=== PATIENT | male | born 1955 | race Two or more races ===

== ENCOUNTER → 2024-08-22 | Day surgery (SDC) | payer OTHER, MEDICAID ==
[~2024-08-22] VITALS: Ht 172.7 cm; Wt 92.1 kg
[~2024-08-22] MED LIST: AML5T PO; ATOR10TA52 PO; CHOL20007 OR; FINA5TAB4 PO; HYDR-4072 PO; HYDROmorphone HCL 2 MG/ML VL/or syr IV PRN; HYDROmorphone HCL 2 MG/ML VL/or syr ONE; KETOROLAC TROMETH 30 MG/ML 1ML VIAL IV ONE; METF-490 PO; MIDAZOLAM HCL 2MG/2ML 2ml VIAL (1mg/ml) IV PRN; MIDAZOLAM HCL 2MG/2ML 2ml VIAL (1mg/ml) ONE; MORPHINE SULFATE 4 MG/ML SYR/VIAL IV PRN; ONDANSETRON HCL 4 MG/2 ML VIAL IV ONE; PROPOFOL 10 MG/ML 20 ML IV ONE; TAMS0.4C39 PO; ceFAZolin 2 GM/D5W50ml 50 ML IV ONE; ePHEDrine SULFATE 50 MG/ML AMP IV PRN; ePHEDrine SULFATE 50 MG/ML AMP ONE; fentaNYL CITRATE 100 MCG/2 ML VL ONE; hydrALAZINE HCL 20 MG/ML VL IV PRN
[2024-08-22 08:15] VITALS: PULSE 82; RESP 18; O2SAT 96
[2024-08-22 09:15] VITALS: BP 142/78; PULSE 73; RESP 14; O2SAT 98
--- NOTE | 2024-08-22 11:12 | DVHOP2 ---
Discharge Orders Discharge Orders DISCHARGE WHEN CRITERIA MET DISCHARGE WHEN CRITERIA MET. Operative Rep- Outpatient Operative Report PRE-OP DIAGNOSIS: Left knee medial and lateral meniscus tear PRE-OP PAIN LEVEL (0-10): 7 POST-OP DIAGNOSIS: Same [facility] protocol followed: Yes ESTIMATED BLOOD LOSS: Minimal PROCEDURE: Left knee arthroscopy with a partial medial and lateral meniscectomy Left knee microfracture lateral femoral condyle Left knee aggressive synovectomy with excision of the medial plica an anterior fat pad SURGEON/INTRAMURAL DIRECTOR: Toribio EM ANESTHESIA: General ANESTHESIOLOGIST: INFORMED CONSENT: Informed Consent: Discussed all inherent risks, complications, and alternatives treatments with the patient. Patient has agreed to proceed with the procedure. I have reviewed all pre-operative assessments including Labs, EKGs, and radiographic images that has been performed. Patient is an appropriate candidate for the outpatient surgical center procedure. The patient was educated on the risks and benefits of surgical and nonsurgical treatment of the left lower extremity the patient understood the risks and benefits of surgical and nonsurgical treatment of left knee the patient had a medial meniscus tear and lateral meniscus tear of the patient understood the risks associated with the having arthroscopy of the left knee the patient understood the risks of having cartilage procedure was based on these parameters the patient was educated in the preoperative diagnosis. The patient was seen in the preoperative holding of the left lower extremity was marked the patient was brought to the operative suite general anesthesia was then induced and also to hospital protocol the left lower extremity was prepped and draped in the standard fashion Ancef was given for infection prophylaxis TXA was given for bleeding prophylaxis of the left lower extremity was then prepped and draped in the standard fashion once it was then done on the anteromedial anterolateral portal were then made to put the arm with the patellofemoral joint was then noted the patient has significant osteophyte noted on the inferior pole of the patella the patient had grade 1 grade 2 changes on the inferior lateral facet of the patella the medial and lateral facet the patient had grade 1 changes on the trochlea the medial femoral condyle and grade 3 changes on the medial femoral condyle with the patient had grade 3 changes of the medial tip plateau of the best complex tear of the posterior horn of the medial meniscus with partial medial meniscectomy was then completed with a shaver and biter once it was then completed the ACL PCL grossly was intact radiographs of synovitis into a excision of the medial plaquing anterior fat pad once I was then completed the lateral meniscus that a radial body tear of the involving 20% of the meniscus with partial lateral meniscectomy was then completed the lateral femoral condyle and lateral tibial plateau cartilage was grossly intact with a 0.25 of ropivacaine local was injected into the portal sites closed with 2-0 nylon. The patient will be weight-bearing as tolerated in the left lower extremity PT OT out of bed daily the microfracture and recall the nodule had femoral condyle was then completed on for vessel, bleeding the patient will be weight-bearing as tolerated the patient will be educated on the articular cartilage changes and the ongoing pain in the knee based on the articular cartilage changes. TORIBIO SIDDIQUI MD Aug 22, 2024 11:12
== END | disposition home or self-care (01) ==
LOC: SUR 06:14
PROVIDERS: ATTEND Orthopaedic Surgery
DX: S83.242A Other tear of medial meniscus, current injury, left knee, initial encounter (principal); S83.282A Other tear of lateral meniscus, current injury, left knee, initial encounter; M17.12 Unilateral primary osteoarthritis, left knee; M25.762 Osteophyte, left knee; M65.862 Other synovitis and tenosynovitis, left lower leg; I10 Essential (primary) hypertension; E11.9 Type 2 diabetes mellitus without complications; Z98.890 Other specified postprocedural states; Z79.899 Other long term (current) drug therapy; X58.XXXA Exposure to other specified factors, initial encounter; Y93.89 Activity, other specified; Y92.89 Other specified places as the place of occurrence of the external cause; Y99.8 Other external cause status
CPT/HCPCS: 29880; 82962; J0690; J1171; J2250; J2704; J3010